=== PATIENT | female | born 1990 | race Caucasian/White ===

== ENCOUNTER 2017-03-16 02:55 | Emergency (ER) | payer MEDICAID, OTHER ==
[~2017-03-16] VITALS: Ht 160 cm; Wt 54.4 kg
[2017-03-16 02:55] VITALS: BP 116/92; PULSE 110; RESP 19; TEMP 99.3; O2SAT 100
--- NOTE | 2017-03-16 02:55 | NUR ---
Patient to ER bed 4 to gown for evaluation. Side rails up. Report given to RUSSELL Leon.
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
--- NOTE | 2017-03-16 03:05 | NUR ---
ER Dr. Mcallister at bedside examining patient.
--- NOTE | 2017-03-16 03:10 | NUR ---
Written and verbal consent obtained from patient for blood alcohol, name and verified by patient. Disinfected patient's skin with povidone iodine that did not contain alcohol or other volatile organic compound. Collected the blood from the subject named by venipuncture, in the presence of Officer [id number]. Used a sterile, dry hypodermic needle and dry vacuum blood collection. The dry vacuum blood collection was supplied by the officer named above. Withdrew a specimen of blood from left AC of the subject named above. Inverted the blood tube several times to ensure that the preservative and anticoagulant were thoroughly mixed in the blood specimen. I initialed the blood tube label for identification. The labeled blood tube was handed directly to the Officer named above. The blood tube stopper remained in place while I had possession of the blood tube. The Officer placed tube into envelope and sealed it in my presence. Envelope initialed by myself and Officer named above. Patient tolerated well, bandage applied, and bleeding controlled.
[2017-03-16 03:51] VITALS: BP 117/90; PULSE 107; RESP 19; TEMP 99.3; O2SAT 100
--- NOTE | 2017-03-16 03:51 | NUR ---
Pt discharged into custody of the P. Pt recieved a copy of her exit care and the officers received a copy of her blood draw consent and medical clearance form. Pt ambulated out of the ED in handcuffs to waiting law enforcement vehicle.
== END 2017-03-16 03:51 ==
LOC: SED 02:55
DX: Z04.1 Encounter for examination and observation following transport accident (principal); M25.521 Pain in right elbow; Z88.8 Allergy status to other drugs, medicaments and biological substances; V89.2XXA Person injured in unspecified motor-vehicle accident, traffic, initial encounter; Y93.89 Activity, other specified; Y92.89 Other specified places as the place of occurrence of the external cause; Y99.8 Other external cause status
CPT/HCPCS: 99284